=== PATIENT | male | born 1960 | race Caucasian/White ===

== ENCOUNTER → 2016-08-14 | Outpatient (CLI) | payer OTHER ==
[~2016-08-14] MED LIST: ASPI325T4 PO
[2016-08-14 13:29] LABS: ALT/SGPT 26 U/L (12-78); BLOOD UREA NITROGEN 8 mg/dl (7-18); BUN/CREATININE RATIO 9.2 (10-20); CALCIUM 9.5 mg/dl (8.5-10.1); CARBON DIOXIDE 24 mmol/L (21-32); CHLORIDE 102 mmol/L (98-107); CHOLESTEROL 191 mg/dl (0-200); GLUCOSE 311 mg/dl (70-99); POTASSIUM 4.1 mmol/L (3.5-5.1); SODIUM 136 mmol/L (136-145); TRIGLYCERIDES 103 mg/dl (0-150); VERY LOW DENSITY LIPOPROT CALC 21 mg/dl
[2016-08-14 13:32] LABS: ESTIMATED AVERAGE GLUCOSE 335 mg/dl; HA1C FLAG Normal (Normal)
[2016-08-14 13:50] LABS: ALB/GLOB RATIO 1.1 (0.9-2); ALKALINE PHOSPHATASE 127 U/L (45-117); AST/SGOT 14 U/L (15-37); CHOLESTEROL/HDL RATIO 4.9; HDL CHOLESTEROL 39 mg/dl; LDL CHOLESTEROL CALCULATED 131 mg/dl; THYROID STIMULATING HORMONE 0.511 uIu/ml (0.300-4.500)
== END | disposition home or self-care (01) ==
LOC: C.LABPVFM 07:52
PROVIDERS: ATTEND Nurse Practitioner Family
DX: E11.9 Type 2 diabetes mellitus without complications (principal); R20.2 Paresthesia of skin

== ENCOUNTER → 2016-08-18 | Outpatient (CLI) | payer OTHER ==
--- NOTE | 2016-08-18 10:30 | DIAGNOSTIC IMAGING REPORT ---
CT LUNG SCREENING, LOW DOSE WITH COMPUTER-AIDED DETECTION (CAD) CLINICAL HISTORY: TOBACCO USE COMPARISON STUDY: Chest x-ray 03/18/2012. CT DOSE: 91.70 mGy.cm TECHNIQUE: Low-dose helical CT was acquired without intravenous contrast from lung apices to bases and reconstructed at 2.5 mm every 2 mm. CAD was utilized for this study. FINDINGS: No pleural effusions. No pneumothorax. No focal lung consolidations to suggest pneumonia. The central airways are patent. No suspicious pulmonary nodules identified. No suspicious lytic or blastic osseous lesions. No mediastinal or hilar lymphadenopathy. A 1.5 cm left adrenal gland nodule is consistent with a benign adenoma. The visualized liver and spleen are unremarkable. Normal caliber thoracic aorta. The heart is normal in size. IMPRESSION: No suspicious pulmonary nodules identified. CAD FINDINGS: Overall Lung RADS Category: 1 Lung RADS Management Recommendation: Lung-RADS 1: Continue annual screening in 12 months. Lung RADS Follow Up Date: 2017-08-18 Lung RADS Nodule ID: Electronically signed by: Jesus Ash M.D. 08/18/2016 10:29 AM Dictated Date/Time: 08/18/2016 10:24 AM
== END | disposition home or self-care (01) ==
LOC: C.CTS 09:48
PROVIDERS: ATTEND Nurse Practitioner Family
DX: E11.9 Type 2 diabetes mellitus without complications (principal); R20.2 Paresthesia of skin; Z72.0 Tobacco use

== ENCOUNTER → 2016-09-01 | Outpatient (CLI) | payer OTHER ==
[~2016-09-01] VITALS: Ht 172.7 cm; Wt 91.9 kg
[2016-09-01 13:47] VITALS: BP 130/71; PULSE 125; Ht 172.7 cm; Wt 91.9 kg
== END | disposition home or self-care (01) ==
LOC: C.NEUR 13:25
PROVIDERS: ATTEND Physician Assistant
DX: G47.30 Sleep apnea, unspecified (principal)

== ENCOUNTER → 2016-09-04 | Outpatient (CLI) | payer OTHER ==
--- NOTE | 2016-09-09 07:48 | PAP/PSG TECHNICIAN REPORT ---
[facility] Health Education Coordinator Polysomnogram Report Study name: None Report date: 09/05/2016 Study date: 09/04/2016 Referring Physician: Nancy Zelaya PA-C, PA-C Name: IFTIKHAR ROBBINS Interpreting Physician: Larry Fung D.O. Date of : 1960 Health Education Coordinator: Chandni Rockwell [facility]. Sex: Male Age: 56 StudyType: PSG Weight: 202.7 lbs Height: 56 years, Height 5' 8" BMI: 30.82 Medications: Aspirin 325 mg, Lantus, Metformin, Multi Vitamin, Vitamin D Patient History 56 yr. old male here for a possible modified split night sleep study in room 6. A split is to be done if AHI >7. Patient used CPAP in the past, and noticed an improvement. He lost his machine during a move. Patients [place] sleepiness scale score is 7/24. Parameters Monitored NPSG: E1-M2, E2-M1, Fp1-M2, Fp2-M1, F3-M2, F4-M2, F4-M1, C3-M2, C4-M2, C4-M1, O1-M2, O2-M2, O2-M1, T3-M2, T4-M1, P3-M2, P4-M1, CHIN1, CHIN2, HR, EKG, Legs, PFLOW, SNOR, FLOW, CFLOW, Tidal Volume, THOR, ABDO, SpO2, PLTH, CPRESS, ETCO2 Wave, ETCO2, pH Sleep Architecture Sleep Stages Time at Lights Off 9:29:34 PM STAGES Time (min.) TST (%) Time at Lights On 5:10:34 AM Wake 97.0 -- Total Recording Time (TRT) 462.00 min. N1 48.5 13 Total Sleep Period (TSP) 432.5 min. N2 179.5 49 Total Sleep Time (TST) 364.0min. N3 77.0 21 Awake Time 98.0 min. REM 59.0 16 Wake after Sleep Onset 70.5 min. Sleep Efficiency (SE) 79 % Sleep Onset Latency (RASHAUN) 26.5 min. Number of Stage 1 Shifts None Awakenings 24 Stage Changes 99 Number of REM periods 6 REM 59.0 16 REM Latency 65.5 min. NREM 305.0 84 Body Position Analysis Supine Right Left Side Prone Vertical Total Sleep Time (min.) 219.8 0.0 209.6 209.58 0.0 0.4 Total Sleep Time (%) 42% 0% 58% 58 0% N/A% Total Sleep Time REM (min.) 11.5 0.0 47.5 None 0.0 0.0 Total Sleep Time NREM (min.) 142.9 0.0 162.1 None 0.0 0.0 Intermittent Wake (min.) 65.4 0.0 31.1 None 0.0 0.4 Total Sleep Period (%) 44% None None None None None Arousals Myoclonus (PLM) * Events Count Index Events Count Index Spontaneous 3 0 Events Awake (PLMW) 91 56.3 Respiratory 2 0.3 Events Asleep w/ Arousal (PLMA) 25 4.1 PLM 24 4 Events Asleep w/o Arousal (PLMS) 214 35.3 Snoring 4 1 Total Asleep 239 39.4 Total 33 5 Total 330 43 Respiratory Analysis * CA OA MA CH H RERA Total Count 0 0 0 0 16 1 16 Index 0.0 0.0 0.0 0 2.6 0 2.8 Mean Duration 0.0 0.0 0.0 0.00 23.5 20.5 23.3 Longest Duration 0.0 0.0 0.0 0.00 0.0 20.5 38.1 Respiratory Event Summary Total Supine ~Supine Right Left Prone REM NREM Apneas Count 0 0 0 N/A 0 N/A 0 0 Index 0.0 0 0 N/A 0.0 N/A 0 0 Hypopneas (4% Desat) Count 16 12 4 N/A 4 N/A 13 3 Index 2.6 4.7 1 N/A 1.1 N/A 13.2 0.6 Apneas & All Hypopneas Count 16 12 4 N/A 4 N/A 13 3 Index 2.6 5 1 N/A 1 N/A 13.2 0.6 Respiratory Events (Negative Turner Apprentice+All Hyp+RERA) Count 16 13 4 N/A 4 N/A 13 3 Index 2.8 5 1 N/A 1.1 N/A 13.2 0.8 Respiratory Related Arousal Count 2 13 0 N/A 0 N/A 1 1 Index 0.3 1 0 N/A 0 N/A 1 0 Snoring Analysis Supine Right Left Prone REM NREM Total Snore duration 4.1 min Snores count 110 N/A 86 N/A 55 141 196 Snore mean duration 1.3 Sec Snores index 43 N/A 25 N/A 55.9 27.7 32.3 TST with snoring (%) 1.1% Desaturation Event Summary: Minimum %SpO2 Event Count Mean/Min/Max Duration(sec.) Desaturation Index % Time In Bed > 90 19 34.1 / 10.3 / 60.0 7.4 33.6 86 - 90 10 31.0 / 10.3 / 60.0 2.0 66.0 81 - 85 0 N/A 0.0 0.4 76 - 80 0 N/A 0.0 0.0 71 - 75 0 N/A 0.0 0.0 66 - 70 0 N/A 0.0 0.0 61 - 65 0 N/A 0.0 0.0 56 - 60 0 N/A 0.0 0.0 51 - 55 0 N/A 0.0 0.0 < 50 0 N/A 0.0 0.0 Total REM NREM Awake <50% 0.0 min. 0.0 min. 0.0 min. 0.0 min. 51 - 60% 0.0 min. 0.0 min. 0.0 min. 0.0 min. 61 - 70% 0.0 min. 0.0 min. 0.0 min. 0.0 min. 71 - 80% 0.2 min. 0.2 min. 0.0 min. 0.0 min. 81 - 90% 303.6 min. 34.4 min. 227.0 min. 42.2 min. 91 - 100% 153.6 min. 24.4 min. 78.0 min. 51.1 min. Average 90 90 90 91 Minimum SpO2 79 79 84 85 Desaturation Event Index 2.7 10.2 0.8 4.3 # Desat. Events below 89% 14 9 4 1 Time(%) with Saturation below 89% 18.1 3.3 12.7 2.1 Time(min.) with Saturation below 89% 82.7 15.0 58.2 9.5 Time (mins) REM (mins) NREM (mins) % of TST SpO2 Below 90% 14 10 N4 44.2 SpO2 Below 88% 6 0 0 6 Heart Rate Analysis Min (bpm) Max (bpm) Average (bpm) Awake 73 100 82 NREM 70 88 77 REM 69 88 76 Overall 69 88 77 Supplemental O2 Values Minimum O2 level: None Value Start Time End Time Health Education Coordinator Comments Mr. Robbins did not qualify for a modified split night sleep study. Mr. Robbins slept in the left and supine positions. No cardiac arrhythmia. PLMs noted. No bruxism noted. Snoring was noted and scored as a 2 on a scale of 0 through 5. (0=no snoring, 5=snoring loud enough to be heard through a closed door or down the roe way) Mr. Robbins awoke to use the restroom once during the night. Mr. Robbins stated, I slept in. The final report will be interpreted and signed by a sleep physician. The completed physician report will then be placed in the patient medical record. Therapy (cm H2O) 0 TIB (min.) 461.0 TST (min.) 364.0 Sleep Onset (min.) 26.5 REM Onset From Sleep (min.) 65.5 Sleep Efficiency % 79 Wakefulness (%) 21 Wakefulness (min.) 98.0 NREM 1 (%) 13 NREM 1 (min.) 48.5 NREM 2 (%) 49 NREM 2 (min.) 179.5 NREM 3 (%) 21 NREM 3 (min.) 77.0 REM (%) 16 REM (min.) 59.0 # Arousals 33 Arousal Index 5 # Snore 196 Snore Index 32.3 AHI 2.6 AHI Supine 5 AHI Non-Supine 1 NREM AHI 0.6 REM AHI 13.2 RDI 2.8 # Obstructive Apnea 0 # Central Apnea 0 # Mixed Apnea 0 # Hypopneas 16 RERAs 1 Total Respiratory Events 18 Time Below SpO2 89% (min.) 73.2 Mean NREM SpO2 (%) 90 Mean REM SpO2 (%) 90 Mean Sleep SpO2 (%) 90 Min NREM SpO2 (%) 84 Min REM SpO2 (%) 79 Position Supine (min.) 219.8 Position Non-supine (min.) 209.6 LM Index Sleep 39.4 LM Index NREM 43.5 LM Index REM 18.3 Mean Heart Rate (bpm) 77 Min Heart Rate (bpm) 69
--- NOTE | 2016-09-09 08:08 | POLYSOMNOGRAPH REPORT ---
CLINICAL DATA: The patient is a 56-year-old male, with a history of sleep apnea. He was diagnosed 11 years ago. His study was done elsewhere. He was on nasal CPAP for several years, but has been off of CPAP for 4 years. He has lost a considerable amount of weight, up to 100 pounds. He has symptoms of snoring, disturbed nocturnal sleep and excessive daytime somnolence. His [place] sleepiness scale score is 7 out of a possible 24. His BMI is currently 30.82. He comes to the sleep disorder center for a diagnostic sleep study. SLEEP ARCHITECTURE: Total sleep period is 432.5 minutes and total sleep time is 364.0 minutes. The sleep efficiency was 79%. Sleep onset latency is mildly prolonged at 26.5 minutes. Wake after sleep onset is 70.5 minutes. There were 24 awakenings. The REM latency was normal at 65.5 minutes. Sleep consisted of stage N1 13%, stage N2 49%, stage N3 21% and stage REM 16%. AROUSAL DATA: The patient had a total of 33 arousals including 3 spontaneous arousals, 2 respiratory arousals, 24 PLM arousals and 4 snoring arousals. The arousal index was 5. PLM DATA: The patient had a total of 239 periodic limb movements of sleep for an index of 39.4. Twenty-five of these were associated with arousals for a PLM arousal index of 4.1. RESPIRATORY DATA: The patient had a total of 16 respiratory events, all of which were hypopneas. The 4% rule was utilized. The mean duration of hypopnea was 23.5 seconds. The apnea-hypopnea index was normal at 2.6 events per hour. In addition, he had 1 RERA. EKG: The underlying cardiac rhythm was normal sinus. The cardiac rates ranged from 69-88 beats per minute with an average of 77 beats per minute. OXIMETRY DATA: The average saturation for the night was 90%. The minimum saturation was 79%. There was a total of 82.7 minutes with saturations less than 89%. LAMINATION SPINNER'S COMMENTS: The patient did not qualify for a split sleep study. He slept in the left and supine positions. No cardiac arrhythmia noted. No bruxism noted. Snoring was noted and scored as a 2 on a scale of 0 through 5. IMPRESSION: 1. Primary snoring. 2. Periodic limb movement disorder. 3. Nocturnal hypoxia. COMMENTS: The patient had no significant sleep apnea. His apnea-hypopnea index was normal at 2.6 events per hour. The sleep efficiency was mildly reduced. He did have frequent periodic limb movements, but with relatively few arousals. It is not known with certainty if the limb movement abnormality may be contributing to his disturbed nocturnal sleep. Further history regarding restless legs would need to be obtained. The patient does have hypoxemia more than would ordinarily be anticipated considering he does not have significant sleep apnea. RECOMMENDATIONS: 1. In light of the decreased oxygen saturations, it is advised that he have a repeat overnight pulse oximetry study at night to determine if he is a candidate for nocturnal oxygen therapy. 2. History should be obtained regarding the role that his leg movements may play in his disturbed sleep. Consideration could be given to pharmacological treatment of the restless legs, if appropriate. 3. The patient is encouraged to continue with his weight loss efforts. [facility]
== END | disposition home or self-care (01) ==
LOC: C.NEUR 21:00
PROVIDERS: ATTEND Physician Assistant
DX: G47.30 Sleep apnea, unspecified (principal)

== ENCOUNTER → 2016-09-19 | Outpatient (CLI) | payer OTHER ==
[~2016-09-19] VITALS: Ht 172.7 cm; Wt 92.2 kg
[2016-09-19 14:53] VITALS: BP 138/84; PULSE 93; Ht 172.7 cm; Wt 92.2 kg
== END | disposition home or self-care (01) ==
LOC: C.NEUR 13:21
PROVIDERS: ATTEND Internal Medicine Pulmonary Disease
DX: G47.34 Idiopathic sleep related nonobstructive alveolar hypoventilation (principal); R20.2 Paresthesia of skin; Z86.69 Personal history of other diseases of the nervous system and sense organs

== ENCOUNTER → 2016-09-26 | Outpatient (CLI) | payer OTHER | END | disposition home or self-care (01) | LOC: C.RC 16:58 | PROVIDERS: ATTEND Physician Assistant | DX: G47.34 Idiopathic sleep related nonobstructive alveolar hypoventilation (principal) ==

== ENCOUNTER → 2016-10-24 | Outpatient (CLI) | payer OTHER ==
[~2016-10-24] VITALS: Ht 172.7 cm; Wt 91.7 kg
[2016-10-24 12:44] VITALS: BP 128/82; PULSE 88; Ht 172.7 cm; Wt 91.7 kg
== END | disposition home or self-care (01) ==
LOC: C.NEUR 12:19
PROVIDERS: ATTEND Physician Assistant
DX: G47.34 Idiopathic sleep related nonobstructive alveolar hypoventilation (principal)

== ENCOUNTER → 2016-11-17 | Outpatient (CLI) | payer OTHER ==
[2016-11-17 12:48] LABS: CALCIUM 9.1 mg/dl (8.5-10.1); ESTIMATED AVERAGE GLUCOSE 166 mg/dl; HA1C FLAG Normal (Normal)
[2016-11-17 12:56] LABS: ALT/SGPT 26 U/L (12-78); AST/SGOT 18 U/L (15-37); BLOOD UREA NITROGEN 12 mg/dl (7-18); BUN/CREATININE RATIO 11.8 (10-20); CARBON DIOXIDE 24 mmol/L (21-32); CHLORIDE 106 mmol/L (98-107); GLUCOSE 119 mg/dl (70-99); POTASSIUM 4.2 mmol/L (3.5-5.1); SODIUM 140 mmol/L (136-145)
[2016-11-17 12:58] LABS: ALB/GLOB RATIO 1.2 (0.9-2); ALKALINE PHOSPHATASE 79 U/L (45-117)
== END | disposition home or self-care (01) ==
LOC: C.LABPVFM 09:51
PROVIDERS: ATTEND Nurse Practitioner Family
DX: E55.9 Vitamin D deficiency, unspecified (principal); E11.9 Type 2 diabetes mellitus without complications

== ENCOUNTER → 2016-12-12 | Outpatient (CLI) | payer OTHER ==
[2016-12-12 12:27] LABS: HEMATOCRIT 43.6 % (42-52); MEAN CELL VOLUME 86.3 fL (80-100); MEAN CORPUSCULAR HEMOGLOBIN 28.9 pg (25-34); MEAN CORPUSCULAR HGB CONC 33.5 g/dl (32-36); MEAN PLATELET VOLUME 9.9 fL (7.4-10.4); PLATELET COUNT 349 K/uL (130-400); RED BLOOD COUNT 5.05 M/uL (4.7-6.1); WHITE BLOOD COUNT 10.72 K/uL (4.8-10.8)
[2016-12-12 13:07] LABS: LYME DISEASE AB IGG NEG (NEG)
[2016-12-12 13:10] LABS: LYME DISEASE AB IGM NEG (NEG)
== END | disposition home or self-care (01) ==
LOC: C.LABPVFM 08:10
PROVIDERS: ATTEND Nurse Practitioner Family
DX: G25.81 Restless legs syndrome (principal); R53.83 Other fatigue

== ENCOUNTER → 2017-02-16 | Outpatient (CLI) | payer OTHER ==
[2017-02-16 12:52] LABS: ESTIMATED AVERAGE GLUCOSE 128 mg/dl; HA1C FLAG Normal (Normal)
[2017-02-16 13:01] LABS: ALT/SGPT 27 U/L (12-78); BLOOD UREA NITROGEN 12 mg/dl (7-18); BUN/CREATININE RATIO 13.3 (10-20); CALCIUM 9.4 mg/dl (8.5-10.1); CARBON DIOXIDE 29 mmol/L (21-32); CHLORIDE 104 mmol/L (98-107); CHOLESTEROL 102 mg/dl (0-200); CREATININE 0.89 mg/dl (0.60-1.40); GLUCOSE 120 mg/dl (70-99); POTASSIUM 4.2 mmol/L (3.5-5.1); SODIUM 138 mmol/L (136-145); TRIGLYCERIDES 72 mg/dl (0-150); VERY LOW DENSITY LIPOPROT CALC 14 mg/dl
[2017-02-16 13:05] LABS: ALB/GLOB RATIO 1.4 (0.9-2); ALKALINE PHOSPHATASE 80 U/L (45-117); AST/SGOT 21 U/L (15-37); CHOLESTEROL/HDL RATIO 2.8; HDL CHOLESTEROL 37 mg/dl; LDL CHOLESTEROL CALCULATED 51 mg/dl
== END | disposition home or self-care (01) ==
LOC: C.LABPVFM 08:09
PROVIDERS: ATTEND Nurse Practitioner Family
DX: E11.9 Type 2 diabetes mellitus without complications (principal); E78.5 Hyperlipidemia, unspecified

== ENCOUNTER → 2017-06-26 | Outpatient (CLI) | payer OTHER ==
[2017-06-26 13:14] LABS: HEMOGLOBIN A1C 6.1 % (4.5-5.6)
[2017-06-26 15:03] LABS: ALBUMIN 4.1 gm/dl (3.4-5.0); ALT/SGPT 30 U/L (12-78); AST/SGOT 16 U/L (15-37); BLOOD UREA NITROGEN 6 mg/dl (7-18); CALCIUM 8.8 mg/dl (8.5-10.1); CARBON DIOXIDE 26 mmol/L (21-32); CREATININE 0.87 mg/dl (0.60-1.40); GLUCOSE 99 mg/dl (70-99); SODIUM 139 mmol/L (136-145)
[2017-06-26 15:06] LABS: ALKALINE PHOSPHATASE 82 U/L (45-117); CHOLESTEROL 83 mg/dl (0-200); LDL CHOLESTEROL CALCULATED 24 mg/dl; TOTAL PROTEIN 7.5 gm/dl (6.4-8.2)
== END | disposition home or self-care (01) ==
LOC: C.LABPVFM 08:11
PROVIDERS: ATTEND Nurse Practitioner Family
DX: E11.9 Type 2 diabetes mellitus without complications (principal); E78.5 Hyperlipidemia, unspecified; I10 Essential (primary) hypertension

== ENCOUNTER → 2017-09-08 | Outpatient (CLI) | payer OTHER ==
--- NOTE | 2017-09-08 10:24 | DIAGNOSTIC IMAGING REPORT ---
PA CHEST WITH BILATERAL RIB SERIES CLINICAL HISTORY: Fall. FINDINGS: A PA chest radiograph with 8 additional views from a bilateral rib series is compared to study dated 03/18/2012 and correlated with chest CT dated 08/18/2016. The cardiomediastinal silhouette is unremarkable. The lungs and pleural spaces are clear. No pneumothorax is seen. There is no radiographic evidence of acute/distracted rib fracture on the bilateral rib series. The remainder of the bony thorax is grossly intact. Calcifications are noted in the left axilla. IMPRESSION: 1. The lungs are clear. 2. There is no radiographic evidence of acute/distracted rib fracture on the bilateral rib series. Electronically signed by: Santi Gale M.D. 09/08/2017 10:22 AM Dictated Date/Time: 09/08/2017 10:20 AM
== END | disposition home or self-care (01) ==
LOC: C.RAD1850 09:48
PROVIDERS: ATTEND Physician Assistant
DX: T14.8XXA Other injury of unspecified body region, initial encounter (principal); W19.XXXA Unspecified fall, initial encounter

== ENCOUNTER → 2017-09-24 | Outpatient (CLI) | payer OTHER ==
--- NOTE | 2017-09-24 14:27 | DIAGNOSTIC IMAGING REPORT ---
CT LUNG SCREENING, LOW DOSE WITH COMPUTER-AIDED DETECTION (CAD) CLINICAL HISTORY: Lung cancer screening. Nicotine dependence. COMPARISON STUDY: Chest CT 08/18/2016. CT DOSE: 79.39 mGycm TECHNIQUE: Low-dose helical CT was acquired without intravenous contrast from lung apices to bases and reconstructed at 2.5 mm every 2 mm. CAD was utilized for this study. A dose lowering technique was utilized adhering to the principles of ALARA. FINDINGS: No pleural effusions. No pneumothorax. No focal lung consolidations to suggest pneumonia. Mild central bronchial wall thickening, unchanged. No suspicious pulmonary nodules identified. No suspicious lytic or blastic osseous lesions. No mediastinal or hilar lymphadenopathy. A 1.5 cm left adrenal gland nodule is consistent with a benign adenoma. The visualized liver and spleen are unremarkable. Normal caliber thoracic aorta. The heart is normal in size. IMPRESSION: No suspicious pulmonary nodules identified. CAD FINDINGS: Overall Lung RADS Category: 1 Lung RADS Management Recommendation: Continue annual lung cancer screening. Lung RADS Follow Up Date: 2018-09-24 Lung RADS Nodule ID: Electronically signed by: Jesus Ash M.D. 09/24/2017 2:26 PM Dictated Date/Time: 09/24/2017 2:17 PM
== END | disposition home or self-care (01) ==
LOC: C.CTS 13:31
PROVIDERS: ATTEND Physician Assistant
DX: Z87.891 Personal history of nicotine dependence (principal)

== ENCOUNTER → 2017-09-25 | Outpatient (CLI) | payer OTHER ==
[2017-09-25 13:33] LABS: HEMOGLOBIN A1C 6.4 % (4.5-5.6)
== END ==
LOC: C.LABPVFM 08:00
PROVIDERS: ATTEND Nurse Practitioner Family
DX: E11.9 Type 2 diabetes mellitus without complications (principal)

== ENCOUNTER → 2017-10-07 | Outpatient (CLI) | payer OTHER ==
[~2017-10-07] MED LIST changes: +ATROPINE SULFATE 0.1 MG/ML 5ML SYR ONE; +DOBUTamine HCL 12.5 MG/ML 20 ML VIAL ONE; +METOPROLOL TARTRATE 1 MG/ML VIAL ONE; +PERFLUTREN LIPID MICROSPHERE (DEFINITY) IV ONE
--- NOTE | 2017-10-07 13:40 | DOBUTAMINE ECHO ---
*NOTICE TO RECEIVING LIBERTARIAN AGENCY This information is strictly Confidential and protected under [place] law. [place] law prohibits you from making any further disclosure of this information unless further disclosure is expressly permitted by the written consent of the person to whom it pertains or is authorized by law. A general authorization for the release of medical or other information is not sufficient for this purpose. Hospital accepts no responsibility if the information is made available to any other person, INCLUDING THE PATIENT. Interpretation Summary * Name: IFTIKHAR ACEVEDO Study Date: 10/07/2017 09:34 AM BP: 121/80 mmHg * Patient Location: [facility] HR: 96 * : 1960 (M/d/yyy) Gender: Male Height: 68 in * Age: 57 yrs Ethnicity: CA Weight: 198 lb * Performed By: Brandy Shin RDCS * * Reason For Study: CHEST PAIN * BSA: 2.0 m2 * -- Conclusions -- * 1. Negative dobutamine stress echocardiogram for myocardial ischemia at 95% predicted maximum heart rate. * 2. No dobutamine induced chest pain. * 3. Dobutamine induced nonsustained ventricular tachycardia at peak infusion * 4. Baseline echocardiogram notes normal left ventricular systolic function, mild left ventricle hypertrophy, and evidence of diastolic dysfunction. Procedure Details * DOBUTAMINE ECHO, CPT#22349 * A contrast injection of Definity was performed to improve assessment of LV function. * Contrast was injected into an intravenous site in the left arm. * One vial of Definity ultrasound contrast was diluted in normal saline to a total volume of 10 ml. A total of '3' ml of solution was administered during imaging. * Lot # [id number] of Definity utilized for procedure. * Expiration date 1 JUL 27. * The attending nurse who injected the contrast agent was KENISHA MOREL RN. Left Ventricle * The left ventricle is normal in size. * There is mild concentric left ventricular hypertrophy. * Ejection Fraction = 60-65%. * Left ventricular systolic function is normal. * Resting wall motion: Normal. Stress wall motion: Appropriate increase in Left ventricular systolic function and decrease in cavity size. No stress induced segmental wall motion abnormalities. Right Ventricle * The right ventricle is not well visualized. * The right ventricular systolic function is normal as assessed by tricuspid annular plane systolic excursion (TAPSE) (normal >1.5 cm). Atria * The left atrial size is normal. * Right atrium not well visualized. * There is no evidence of atrial septal defect, but resolution does not allow assessment for a patent foramen ovale. Mitral Valve * The mitral valve is grossly normal. * There is no mitral valve stenosis. * Significant mitral regurgitation is absent. Tricuspid Valve * The tricuspid valve is not well visualized, but is grossly normal. * There is no tricuspid stenosis. * Significant tricuspid regurgitation is absent. Aortic Valve * The aortic valve is trileaflet. * The aortic valve opens well. * No hemodynamically significant valvular aortic stenosis. * There is no significant aortic regurgitation. Pulmonic Valve * The pulmonary valve is not well seen, but the Doppler examination is normal without significant regurgitation or stenosis. Great Vessels * The aortic root is normal size. * The pulmonary is not well visualized. Pericardium * There is no pericardial effusion. Stress Parameters * Normal baseline electrocardiogram. * Stress ECG: No ST changes. No arrhythmias. * Brief salvos of ventricular tachycardia noted at peak infusion rate. * The stress portion of this study was personally supervised by the undersigned interpreting physician. * Rest heart rate was '96' BPM. * Rest blood pressure was '121/80' * Maximum heart rate achieved was 153 bpm. * Maximum heart rate was 95 % of maximum age-predicted heart rate. * Maximum blood pressure was '139/50' * Maximum Dobutamine infusion rate was '20' mcg/kg/min. * A total of .5 mg of intravenous Atropine was used to supplement Dobutamine for heart rate response. * Dobutamine infusion was terminated due to achieving target heart rate * A total of 10 mg of IV Metoprolol was administered to reverse Dobutamine-induced tachycardia. Left Ventricular Diastolic Function * Grade I diastolic dysfunction, (abnormal relaxation pattern). MMode 2D Measurements and Calculations IVSd 1.3 cm IVSs 1.5 cm LVIDd 3.9 cm LVIDs 2.6 cm LVPWd 1.3 cm LVPWs 1.7 cm IVS/LVPW 0.99 FS 31.4 % EDV(Teich) 64.4 ml ESV(Teich) 25.7 ml EF(Teich) 60.0 % EDV(cubed) 57.6 ml ESV(cubed) 18.6 ml EF(cubed) 67.8 % % IVS thick 22.2 % % LVPW thick 33.2 % LV mass(C)d 167.8 grams LV mass(C)dI 82.4 grams/m\S\2 LV mass(C)s 151.9 grams LV mass(C)sI 74.6 grams/m\S\2 SV(Teich) 38.7 ml SI(Teich) 19.0 ml/m\S\2 SV(cubed) 39.1 ml SI(cubed) 19.2 ml/m\S\2 Ao root diam 3.3 cm Ao root area 8.4 cm\S\2 LA dimension 3.0 cm LA/Ao 0.92 LVAd ap4 20.4 cm\S\2 LVLd ap4 7.4 cm EDV(MOD-sp4) 47.9 ml EDV(sp4-el) 47.3 ml LVAs ap4 11.7 cm\S\2 LVLs ap4 6.1 cm ESV(MOD-sp4) 20.1 ml ESV(sp4-el) 18.8 ml EF(MOD-sp4) 57.9 % EF(sp4-el) 60.2 % LVAd ap2 24.2 cm\S\2 LVLd ap2 7.9 cm EDV(MOD-sp2) 62.2 ml EDV(sp2-el) 62.9 ml LVAs ap2 13.2 cm\S\2 LVLs ap2 6.6 cm ESV(MOD-sp2) 21.7 ml ESV(sp2-el) 22.3 ml EF(MOD-sp2) 65.1 % EF(sp2-el) 64.6 % LVLd %diff 5.6 % EDV(MOD-bp) 55.7 ml LVLs %diff 7.5 % ESV(MOD-bp) 22.1 ml EF(MOD-bp) 60.4 % SV(MOD-sp4) 27.7 ml SI(MOD-sp4) 13.6 ml/m\S\2 SV(MOD-sp2) 40.5 ml SI(MOD-sp2) 19.9 ml/m\S\2 SV(MOD-bp) 33.6 ml SI(MOD-bp) 16.5 ml/m\S\2 SV(sp4-el) 28.5 ml SI(sp4-el) 14.0 ml/m\S\2 SV(sp2-el) 40.7 ml SI(sp2-el) 20.0 ml/m\S\2 Doppler Measurements and Calculations MV E max peter 48.0 cm/sec MV A max peter 67.9 cm/sec MV E/A 0.71 MV dec time 0.27 sec Ao V2 max 162.9 cm/sec Ao max PG 10.6 mmHg Ao max PG (full) 5.2 mmHg LV V1 max PG 5.4 mmHg LV V1 max 116.4 cm/sec
== END | disposition home or self-care (01) ==
LOC: C.CPL 09:18
PROVIDERS: ATTEND Physician Assistant Medical
DX: I47.2 Ventricular tachycardia (principal); R07.9 Chest pain, unspecified